=== PATIENT | male | born 2000 | race Caucasian/White ===

== ENCOUNTER 2018-02-06 15:06 | Emergency (ER) | payer SELFPAY ==
[2018-02-06] MEDS ORDERED: Ketorolac 60 MG/2 ML SDV IM ONE (15:12)
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
== END 2018-02-06 16:30 | disposition home or self-care (01) ==
LOC: MW.ED 15:06
DX: S40.012A Contusion of left shoulder, initial encounter (principal); V86.56XA Driver of dirt bike or motor/cross bike injured in nontraffic accident, initial encounter
CPT/HCPCS: 73030; 96372; 99284; J1885